=== PATIENT | female | born 1990 | race Caucasian/White ===

== ENCOUNTER 2016-11-21 17:00 | Emergency (ER) | payer OTHER ==
[~2016-11-21] VITALS: Ht 157.5 cm; Wt 51.0 kg
[2016-11-21 17:03] VITALS: Ht 157.5 cm; Wt 51.0 kg
[2016-11-21] MEDS ORDERED: HYDR25SU23 PR (17:54)
--- NOTE | 2016-11-21 17:57 | ERD ---
ER Documentation Chief Complaint Date/Time DATE: 11/21/16 TIME: 17:56 Chief Complaint REPORTED BLOODY STOOL X 2 TODAY, AP HPI This is a 26-year-old female who took some fiber last night to help her constipation. She said today she had a solid stool that look like it had some blood at the very tip. Then later on the day she had another solid stool that when she was wiping there were some bright red blood. She has no anal or rectal pain and no abdominal pain no fever. The patient had this happen once before about 2 months ago after straining very hard trying to passive stool being constipated. ROS All systems reviewed and are negative except as per history of present illness. Medications Home Meds Active Scripts Hydrocortisone Acetate (Anusol-Hc) 25 Mg Supp.rect, 1 SUPP UT BID Y for HEMORROID PAIN/ITCHING, #12 SUPP.RECT Prov:MARY LOU MACHADO DO 11/21/16 Allergies Allergies: Coded Allergies: No Known Allergy (Unverified , 11/21/16) PMhx/Soc Medical and Surgical Hx: pt denies Medical Hx, pt denies Surgical Hx Hx Alcohol Use: No Hx Substance Use: No Hx Tobacco Use: No FmHx Family History: No coronary disease Physical Exam Vitals Vital Signs Date Time Temp Pulse Resp B/P Pulse Ox O2 Delivery O2 Flow Rate FiO2 11/21/16 17:03 98.1 95 18 123/60 99 Physical Exam Const: Well-developed, well-nourished Head: Atraumatic, normocephalic Eyes: Normal Conjunctiva, PERRLA, EOMI, normal sclera, no nystagmus ENT: Normal External Ears, Nose and Mouth, moist mucus membranes. Neck: Full range of motion. No meningismus, no lymphadenopathy. Resp: Clear to auscultation bilaterally, no wheezing, rhonchi, rales Cardio: Regular rate and rhythm, no murmurs, S1 S2 present Abd: Soft, non tender x 4, non distended. Normal bowel sounds, no guarding or rebound, no pulsitile abdominal masses or bruits Rectal: 6:00 there is a very small hemorrhoid that is tender to palpation and at 5:00 there is a very small tear of the skin/fissure Skin: No petechiae or rashes, no ecchymosis , no maculopapular rash Back: No midline or flank tenderness Ext: No cyanosis, or edema, FROM x 4, normal inspection, neurovascularly intact x 4 Neur: Awake and alert, STR 5/5 x 4, sensation intact x 4, no focal findings, cerebellum intact Psych: Normal Mood and Affect Departure Diagnosis: Primary Impression: Hemorrhoids Hemorrhoid type: first degree Qualified Code: K64.0 - First degree hemorrhoids Condition: Stable Patient Instructions: Anal Fissure (Child), Hemorrhoids Referrals: IVELISSE STEPHENS MD, APOSTOLOS A. DO Nov 21, 2016 17:57
== END 2016-11-21 18:00 | disposition home or self-care (01) ==
LOC: FTE 17:00
DX: K64.0 First degree hemorrhoids (principal)
CPT/HCPCS: 99284

== ENCOUNTER 2017-01-05 09:34 | Emergency (ER) | payer OTHER ==
[~2017-01-05] VITALS: Ht 157.5 cm; Wt 49.0 kg
[~2017-01-05 09:34] MED LIST: HYDR25SU23 PR
[2017-01-05 09:45] VITALS: Ht 157.5 cm; Wt 49.0 kg
--- NOTE | 2017-01-05 11:22 | ERD ---
ER Documentation Chief Complaint Date/Time DATE: 01/05/17 TIME: 11:17 Chief Complaint Complains of palpitations x 2 days HPI This is a 26-year-old female presents emergency department today complaining of intermittent palpitations for past couple days. States that sometimes her heart rate gets up to 117 her 118. Denies any chest pain or difficulty breathing. States she is also had numbness and tingling in her hands and her feet in her face. States that she has seen her primary care provider was told that it is probably anxiety. States she has had lots of stomach issues as well and she is finally seeing a GI specialist on Sunday after waiting for 2 months. States that she has had some weight loss and feels fatigued. Patient states that her primary care doctor did try a TSH panel but she does not have results yet. Denies any fevers or chills, dizziness, blurred vision. ROS All systems reviewed and are negative except as per history of present illness. Medications Home Meds Active Scripts Hydrocortisone Acetate (Anusol-Hc) 25 Mg Supp.rect, 1 SUPP SC BID Y for HEMORROID PAIN/ITCHING, #12 SUPP.RECT Prov:MARY LOU MACHADO DO 11/21/16 Allergies Allergies: Coded Allergies: No Known Allergy (Unverified , 11/21/16) PMhx/Soc Hx Alcohol Use: No Hx Substance Use: No Hx Tobacco Use: No Physical Exam Vitals Vital Signs Date Time Temp Pulse Resp B/P Pulse Ox O2 Delivery O2 Flow Rate FiO2 01/05/17 09:45 98.0 91 20 125/65 97 Physical Exam Const: NAD Head: Atraumatic Eyes: Normal Conjunctiva ENT: Normal External Ears, Nose and Mouth. Neck: Full range of motion..~ No meningismus. Resp: Clear to auscultation bilaterally Cardio: Regular rate and rhythm, no murmurs Abd: Soft, non tender, non distended. Normal bowel sounds Skin: No petechiae or rashes Back: No midline or flank tenderness Ext: No cyanosis, or edema Neur: Awake and alert Psych: Normal Mood and Affect Result Diagram: 01/05/17 1110 01/05/17 1124 Results 24 hrs Laboratory Tests Test 01/05/17 11:10 01/05/17 11:24 White Blood Count 7.210^3/ul Red Blood Count 4.2610^6/ul Hemoglobin 12.7g/dl Hematocrit 37.8% Mean Corpuscular Volume 88.7fl Mean Corpuscular Hemoglobin 29.8pg Mean Corpuscular Hemoglobin Concent 33.6g/dl Red Cell Distribution Width 12.7% Platelet Count 85423^3/UL Mean Platelet Volume 11.6fl Neutrophils % 71.0% Lymphocytes % 23.0% Monocytes % 4.7% Eosinophils % 0.4% Basophils % 0.6% Nucleated Red Blood Cells % 0.0/100WBC Neutrophils # (Manual) 5.110^3/ul Lymphocytes # 1.710^3/ul Monocytes # 0.310^3/ul Eosinophils # 0.010^3/ul Basophils # 0.010^3/ul Nucleated Red Blood Cells # 0.010^3/ul Sodium Level 142mmol/L Potassium Level 3.9mmol/L Chloride Level 107mmol/L Carbon Dioxide Level 22mmol/L Anion Gap 17 Blood Urea Nitrogen 7mg/dl Creatinine 0.65mg/dl Glucose Level 90mg/dl Calcium Level 9.4mg/dl Total Bilirubin 0.3mg/dl Direct Bilirubin 0.00mg/dl Indirect Bilirubin 0.3mg/dl Aspartate Amino Transf (AST/SGOT) 22IU/L Alanine Aminotransferase (ALT/SGPT) 35IU/L Alkaline Phosphatase 61IU/L Total Protein 8.5g/dl Albumin 4.6g/dl Globulin 3.90g/dl Albumin/Globulin Ratio 1.17 Procedures/MDM This is a 26-year-old female presents to the emergency department today complaining of palpitations, some fatigue and numbness and tingling in her hands and face. I do feel that this is primarily anxiety related however given patient's complaints of fatigue and recent stomach issues and complaints of weight loss I did obtain basic laboratory workup. I do not feel the patient requires thyroid workup as she is currently awaiting results of that. Patient' s primary complaint today was not her abdominal pain and therefore do not feel the patient requires abdominal pain workup especially given that she is a GI specialist appointment next Sunday.Did obtain an EKG EKG read and interpreted by Dr. Mix: Rate 91 bpm. No sign of motion. No QT prolongation. Normal sinus rhythm.Low suspicion for acute HI, PE, pericarditis , SVT. Laboratory workupShows no elevated white blood cell count. She is not anemic. Platelets are within normal limits. Electrolytes are within normal limits. Glucose within normal limits. Liver enzymes are within normal limits. Patient symptoms at this time with complaints of palpitations, numbness and tingling most likely related to anxiety related symptoms. I did explain to the patient that she may benefit from cardiology referral from her primary care doctor. I did also give her a list of names for staffing clerk. She was instructed to continue her appointment with her GI specialist next week. At this time the patient is stable for discharge and outpatient management. Patient should follow up with their PCP in the next 1-2 days. They may return to the emergency department sooner for any persistent or worsening of symptoms. Patient understood and agreed with the plan. Departure Diagnosis: Primary Impression: Palpitations Condition: HORTENCIA Zapien PA-C Jan 05, 2017 11:22
[2017-01-05 11:45] LABS: BASOPHILS % 0.6 % (0.0-2.0); EOSINOPHILS % 0.4 % (0.0-7.0); HEMATOCRIT 37.8 % (37.0-47.0); HEMOGLOBIN 12.7 g/dl (12.0-16.0); LYMPHOCYTES # 1.7 10^3/ul (0.8-2.9); MEAN CORPUSCULAR HEMOGLOBIN 29.8 pg (29.0-33.0); MEAN CORPUSCULAR HGB CONC 33.6 g/dl (32.0-37.0); MEAN CORPUSCULAR VOLUME 88.7 fl (82.0-101.0); MEAN PLATELET VOLUME 11.6 fl (7.4-10.4); MONOCYTE # 0.3 10^3/ul (0.3-0.9); MONOCYTES % 4.7 % (0.0-11.0); PLATELET COUNT 213 10^3/UL (140-415); RED BLOOD COUNT 4.26 10^6/ul (4.20-5.40); RED CELL DISTRIBUTION WIDTH 12.7 % (11.5-14.5); WHITE BLOOD COUNT 7.2 10^3/ul (4.8-10.8)
[2017-01-05 12:13] LABS: ALBUMIN 4.6 g/dl (3.3-4.9); ALBUMIN/GLOBULIN RATIO 1.17; BILIRUBIN,INDIRECT 0.3 mg/dl (0-1.1); BILIRUBIN,TOTAL 0.3 mg/dl (0.2-1.3); CALCIUM 9.4 mg/dl (8.4-10.2); CREATININE 0.65 mg/dl (0.44-1.00); POTASSIUM 3.9 mmol/L (3.5-5.1); TOTAL PROTEIN 8.5 g/dl (6.1-8.1)
[2017-01-05 12:37] VITALS: BP 122/68; PULSE 89; RESP 20; TEMP 98.1
== END 2017-01-05 12:38 | disposition home or self-care (01) ==
LOC: FTE 09:34
DX: R00.2 Palpitations (principal)
CPT/HCPCS: 36415; 80053; 85025; 93005; Z7502

== ENCOUNTER 2017-02-01 05:42 | Day surgery (SDC) | payer OTHER ==
[~2017-02-01] VITALS: Ht 165.1 cm; Wt 48.6 kg
[2017-02-01 06:34] VITALS: Ht 165.1 cm; Wt 48.6 kg
[2017-02-01] MEDS ORDERED: NO MEDS. (06:43)
[2017-02-01 06:58] VITALS: BP 116/63; PULSE 74; RESP 13
[2017-02-01] MEDS ORDERED: LIDOCAINE 2% (SDV) 5 ML INJ ONE (07:29)
[2017-02-01] MEDS ORDERED: PROPOFOL 40 ML ONE (07:29)
--- NOTE | 2017-02-01 07:40 | OPPN ---
Date/Time of Note Date/Time of Note DATE: 02/01/17 TIME: 07:39 Operative Report Preoperative Diagnosis Abdominal pain Chronic heartburn Postoperative Diagnosis Gastroesophageal reflux disease Gastritis with erosions Operation/Procedure Performed Esophagogastroduodenoscopy and biopsy Surgeon see signature line food service assistant None Anesthesia: moderate sedation Estimated blood loss: none Transfusion Required none Specimen Gastric mucosal Grafts/Implants none Complications none VERONIKA HERNANDEZ MD Feb 01, 2017 07:40
[2017-02-01] MEDS ORDERED: PROPOFOL 20 ML ONE ×2 (07:41)
[2017-02-01] MEDS ORDERED: MIDAZOLAM 1 MG/ML 2 ML INJ ONE ×2 (07:49)
[2017-02-01] MEDS ORDERED: FENTAnyl 50 MCG/ML VIAL ONE (07:50)
[2017-02-01 08:00] VITALS: BP 108/71; RESP 14
--- NOTE | 2017-02-01 08:10 | GILP ---
DATE OF PROCEDURE: 02/01/2017 PROCEDURE PERFORMED: Esophagogastroduodenoscopy and biopsy. SURGEON: Cecily Hawkins MD. PREOPERATIVE DIAGNOSIS: 1. Abdominal pain. 2. Chronic heartburn. POSTOPERATIVE DIAGNOSES: 1. Gastroesophageal reflux disease. 2. Gastritis with erosions. 3. Gastric mucosal biopsies were taken for Helicobacter pylori test. INDICATION: Ms. Venita Gabriel is a 26-year-old female patient who had upper abdominal pain and chronic heartburn not responding to therapy. The patient was scheduled for endoscopy examination for further evaluation. The procedure and possible complications were well explained to the patient. She understood and consented to the procedure. DESCRIPTION OF PROCEDURE: Under the influence of fentanyl and Versed, the gastroscope was carefully introduced into the esophagus. Under direct vision, it was advanced to the stomach, into the pylorus, into the duodenal bulb, and descending duodenum. FINDINGS: Esophagus, the patient had gastroesophageal reflux disease. Stomach, she had gastritis with erosions. Gastric mucosal biopsies were taken for Helicobacter pylori test. Duodenum was normal. She tolerated the procedure very well. There were no complications from the procedure. At the end of procedure, she was awake with stable vital signs and she was discharged home in the care of her family. IMPRESSION: Please see postoperative diagnosis. PLAN: 1. Omeprazole 40 mg p.o. q.am. 2. Await Helicobacter pylori test report. Dictated By: MD ROYAL Green/anuj/chaparrita /Document#: [id number]
--- NOTE | 2017-02-02 12:20 | CONS ---
DATE OF ADMISSION: 01/05/2017 DATE OF CONSULTATION: 01/10/2017 I thank you very much for this kind referral. HISTORY OF PRESENT ILLNESS: Ms. Venita Pleitez is a 26-year-old female patient who has been referred to me for further evaluation of upper abdominal pain and chronic heartburn not responding to therapy. Patient also had a feeling of foreign body in the throat. There is no past history of peptic ulcer disease. She is not taking any nonsteroidal anti-inflammatory agents. Her appetite has been somewhat poor, and she gives history of weight loss. No history of gallstones or liver disease. There is no history of inflammatory bowel disease. Patient had rectal bleeding secondary to hemorrhoids. Now the bleeding has stopped after medication given in the emergency room. She is not a hypertensive or diabetic. She does not have any heart disease or lung problem. No kidney disease. SOCIAL HISTORY: She is a nonsmoker. She does not abuse alcohol. FAMILY HISTORY: No family history of inflammatory bowel disease or colon neoplasm. ALLERGIES: NO DRUG ALLERGIES. MEDICATION: None. PHYSICAL EXAMINATION: VITAL SIGNS: She is 5 feet 5 inches tall and weighs 108 pounds. HEART: Normal heart sounds. LUNGS: Clear. ABDOMEN: Soft. No masses. Normal bowel sounds. NEUROLOGIC: Normal neurological exam. IMPRESSION: 1. Upper abdominal pain and chronic heartburn not responding to therapy. 2. Weight loss. 3. Feeling of foreign body in the throat. PLAN: Endoscopy for further evaluation. The procedure and possible complications were well explained to the patient. She understands and consents to the procedure. I thank you once again. Patient Name: VENITA PLEITEZ Dictated By: MD ROYAL Green/anuj/rangel /Document#: [id number]
== END 2017-02-01 10:42 | disposition home or self-care (01) ==
LOC: GIL 05:42
PROVIDERS: ATTEND Internal Medicine Gastroenterology
DX: K29.70 Gastritis, unspecified, without bleeding (principal); K21.9 Gastro-esophageal reflux disease without esophagitis; R63.4 Abnormal weight loss; Z68.1 Body mass index [BMI] 19.9 or less, adult
CPT/HCPCS: 43239; 84703; 87081; J2250; J3010; Z7610

== ENCOUNTER 2017-04-05 16:43 | Emergency (ER) | payer SELFPAY ==
[~2017-04-05] VITALS: Wt 51.6 kg
[~2017-04-05 16:43] MED LIST changes: -HYDR25SU23 PR; +NO MEDS.
== END 2017-04-05 21:19 | disposition left against medical advice (07) ==
LOC: FTE 16:43
DX: Z53.21 Procedure and treatment not carried out due to patient leaving prior to being seen by health care provider (principal)

== ENCOUNTER 2017-05-13 15:07 | Emergency (ER) | END 2017-05-13 18:30 | disposition home or self-care (01) ==

== ENCOUNTER 2017-07-07 00:25 | Emergency (ER) | END 2017-07-07 05:47 | disposition home or self-care (01) ==

== ENCOUNTER 2017-08-21 18:20 | Emergency (ER) | END 2017-08-21 18:58 | disposition home or self-care (01) ==

== ENCOUNTER 2017-08-28 17:23 | Emergency (ER) | END 2017-08-28 19:50 | disposition home or self-care (01) ==

== ENCOUNTER 2017-11-23 21:48 | Emergency (ER) | END 2017-11-23 23:44 | disposition home or self-care (01) ==

== ENCOUNTER 2018-04-01 12:56 | Emergency (ER) | END 2018-04-01 16:16 | disposition home or self-care (01) ==

== ENCOUNTER 2018-05-12 15:04 | Emergency (ER) | payer OTHER ==
[~2018-05-12] VITALS: Ht 165.1 cm; Wt 57.2 kg
[~2018-05-12 15:04] MED LIST changes: +ACET500C5 PO; +AMOX500C2 PO; +AZIT250T PO; +BEN25 PO; +BENZ-6 PO; +CEPH-443 PO; +CETI10CA PO; +IBUP-1542 PO; +MAG-19 PO; +NAPR-688 PO; -NO MEDS.; +OMEP20CA16 PO; +ONDA4TAB14 PO; +SUCR1TAB56 PO; +TYL500 PO
[2018-05-12 15:11] VITALS: BP 113/67; PULSE 79; RESP 20; Ht 165.1 cm; Wt 57.2 kg
--- NOTE | 2018-05-12 17:56 | ERD ---
ER Documentation Chief Complaint Chief Complaint Complains of vag bleed x 2 days HPI 28-year-old female, previously healthy, presents to the emergency department, complaining of rectal bleeding for 2 days associated with bowel movements. The bleeding is painless. The patient also reports 2 days with mild constipation. She denies abdominal pain, no fever or chills. ROS All systems reviewed and are negative except as per history of present illness. Medications Home Meds Active Scripts Acetaminophen* (Tylenol*) 500 Mg Tab, 500 MG PO Q4H PRN for MILD PAIN LEVEL 1-3, #30 TAB Prov:PAULA ABDULLAHI 04/01/18 Magaldrate/Simethicone* (Mylanta*) 355 Ml Susp, 30 ML PO QID PRN for GASTROINTESTINAL UPSET for 7 Days, #1 BOTTLE Prov:PAULA ABDULLAHI DO 04/01/18 Amoxicillin* (Amoxicillin*) 500 Mg Cap, 500 MG PO BID for 7 Days, CAP Prov:RAJESH TREJO-C 11/23/17 Diphenhydramine Hcl* (Benadryl*) 25 Mg Cap, 25 MG PO Q6, #10 CAP Prov:RAJESH TREJO-C 11/23/17 Ondansetron (Ondansetron Odt) 4 Mg Tab.rapdis, 4 MG PO Q6H PRN for NAUSEA AND/OR VOMITING, #10 TAB Prov:RAJESH TREJO-C 18 Acetaminophen* (Tylophen*) 500 Mg Capsule, 1 CAP PO Q6H PRN for PAIN AND OR ELEVATED TEMP, #20 CAP Prov:RAJESH TREJO-C 18 Ibuprofen* (Motrin*) 600 Mg Tab, 600 MG PO Q6H PRN for PAIN AND OR ELEVATED TEMP, #30 TAB Prov:SELENE MEJÍA NP 08/28/17 Cephalexin* (Keflex*) 500 Mg Capsule, 500 MG PO QID for 5 Days, CAP Prov:SELENE MEJÍA OTR OWNER OPERATOR TRUCK DRIVER 08/28/17 Cetirizine Hcl* (Zyrtec*) 10 Mg Capsule, 10 MG PO DAILY, #30 TAB.CHEW Prov:SELENE MEJÍA OTR OWNER OPERATOR TRUCK [employer] 08/21/17 Azithromycin* (Zithromax*) 250 Mg Tablet, 250 MG PO .CARLOS DIRECTED, #6 TAB TAKE 500 MG (2 TABS) THE FIRST DAY THEN 250 MG (1 TAB) DAYS 2-5 Prov:SELENE MEJÍA OTR OWNER OPERATOR TRUCK [employer] 08/21/17 Acetaminophen* (Tylophen*) 500 Mg Capsule, 1 CAP PO Q6H PRN for PAIN AND OR ELEVATED TEMP, #20 CAP Prov:CURTISSELENE FORTUNE OTR OWNER OPERATOR TRUCK [employer]IVER 08/21/17 Ibuprofen* (Motrin*) 600 Mg Tab, 600 MG PO Q6H PRN for PAIN AND OR ELEVATED TEMP, #30 TAB Prov:SELENE MEJÍA. OTR OWNER OPERATOR TRUCK [employer]IVER 08/21/17 Benzonatate* (Tessalon Perle*) 100 Mg Capsule, 100 MG PO Q8H PRN for COUGH, #20 CAP Prov:SELENE MEJÍA. OTR OWNER OPERATOR TRUCK [employer]IVER 08/21/17 Naproxen* (Naproxen*) 500 Mg Tablet, 500 MG PO BID PRN for PAIN, #20 TAB Prov:HECTOR ROMERO DO 07/07/17 Reported Medications Omeprazole* (Omeprazole*) 20 Mg Capsule.dr, 20 MG PO DAILY, #30 CAP 07/07/17 Sucralfate* (Carafate*) 1 Gm Tab, 1 GM PO BID, TAB 07/07/17 Allergies Allergies: Coded Allergies: No Known Allergy (Unverified , 07/07/17) PMhx/Soc History of Surgery: No Anesthesia Reaction: No Hx Neurological Disorder: No Hx Respiratory Disorders: No Hx Cardiac Disorders: No Hx Psychiatric Problems: No Hx Miscellaneous Medical Probl: Yes (gastritis, H-pylori, ACID REFLUX) Hx Alcohol Use: Yes (occasional/social) Hx Substance Use: No Hx Tobacco Use: No FmHx Family History: No diabetes, No coronary disease Physical Exam Vitals Vital Signs Date Temp Pulse Resp B/P (MAP) Pulse Ox O2 O2 Flow FiO2 Time Delivery Rate 05/12/18 98.7 79 20 113/67 99 15:11 (82) Physical Exam Const: No acute distress Head: Atraumatic Eyes: Normal Conjunctiva ENT: Normal External Ears, Nose and Mouth. Neck: Full range of motion. No meningismus. Resp: Clear to auscultation bilaterally Cardio: Regular rate and rhythm, no murmurs Abd: Soft, non tender, non distended. Normal bowel sounds. Rectal: Normal inspection, normal sphincter tone, no masses. Skin: No petechiae or rashes Back: No midline or flank tenderness Ext: No cyanosis, or edema Neur: Awake and alert Psych: Normal Mood and Affect Procedures/MDM Differential diagnosis include but not limited to: Internal hemorrhoid, external hemorrhoid, skin tag, bowel Obstruction, ileus, fecal impaction. Low suspicion for acute abdomen. Physical examination and clinical presentation consistent most likely with constipation with internal hemorrhoid. During the ED course the patient remained stable, no new complaints. Treatment options, results and clinical impression discussed with the patient who agrees with management. The patient is stable to be treated outpatient and will be discharged home, some side effects of prescribed medications were revie wed. The patient was instructed to follow up with the primary care provider in the next 48h. If symptoms persist, worsen or new symptoms develop, then patient should return to the ED immediately. Instructions explained and given directly by me to the patient with acknowledgment and demonstrated understanding. Disclaimer: Inadvertent spelling and grammatical errors are likely due to EHR/dictation software use and do not reflect on the overall quality of patient care. Also, please note that the electronic time recorded on this note does not necessarily reflect the actual time of the patient encounter. Departure Diagnosis: Primary Impression: Internal hemorrhoid, bleeding Condition: Stable Additional Instructions: Thank you very much for allowing us to participate in your care. Your health and safety is our top priority at [facility]. Call your primary care doctor TOMORROW for an appointment during the next 2-4 days and bring all the information and medications prescribed. Have prescriptions filled and follow precisely the directions on the label. If the symptoms get worse and your provider is unavailable, return to the Emergency Department immediately. CEDRICK GHOSH MD May 12, 2018 17:56
== END 2018-05-12 19:25 | disposition home or self-care (01) ==
LOC: FTE 15:04
DX: K64.8 Other hemorrhoids (principal)
CPT/HCPCS: 99282